=== PATIENT | female | born 1975 | race Caucasian/White ===

== ENCOUNTER → 2023-03-11 | Outpatient (CLI) | payer BC ==
[2023-03-11 13:58] LABS: Progesterone 10.7 ng/mL
== END | disposition home or self-care (01) ==
LOC: LABWHC1 08:59
DX: E72.19 Other disorders of sulfur-bearing amino-acid metabolism (principal); K21.9 Gastro-esophageal reflux disease without esophagitis; N94.3 Premenstrual tension syndrome; D68.61 Antiphospholipid syndrome; G47.30 Sleep apnea, unspecified; E55.9 Vitamin D deficiency, unspecified; R53.82 Chronic fatigue, unspecified; R73.01 Impaired fasting glucose
CPT/HCPCS: 36415; 82533; 82626; 82670; 84144; 84270; 84402; 84403